=== PATIENT | male | born 1975 | race Caucasian/White ===

== ENCOUNTER 2021-08-24 16:59 | Outpatient (CLI) | payer BC ==
[2021-08-24 17:57] LABS: Hemoglobin 14.3 g/dL (13.5-17.5); Mean Corpuscular HGB CONC 34.7 g/dL (32.0-36.0); Mean Corpuscular Volume 89.4 fl (81.2-95.1); Mean Platelet Volume 10.8 fl (7.4-10.4); Platelet Count 210 10x3/uL (150-450); RBC Distribution Width 12.9 % (11.5-14.5); Red Blood Cell (RBC) Count 4.61 10x6/uL (4.32-5.72); White Blood Cell (WBC) Count 6.8 10x3/uL (3.5-10.5)
[2021-08-24 18:01] LABS: Anion Gap 15 mmol/L (10-20); BUN (Urea Nitrogen) 15 mg/dL (8.9-20.6); Calc. Creatinine Clearance 0 mL/min (70-130); Calcium 9.6 mg/dL (7.8-10.44); Carbon Dioxide 26 mmol/L (22-29); Chloride 103 mmol/L (98-107); Estimated GFR 103; Glucose 114 mg/dL (70-105); Potassium 4.3 mmol/L (3.5-5.1); Sodium 140 mmol/L (136-145)
[2021-08-24 18:09] LABS: INR-International Normal Ratio 1.2
[2021-08-24 18:12] LABS: Prothrombin Time 13.1 sec (9.5-12.1)
== END 2021-08-24 17:00 | disposition home or self-care (01) ==
LOC: LABBT 16:59
PROVIDERS: ATTEND Surgery
DX: Z01.812 Encounter for preprocedural laboratory examination (principal); M51.16 Intervertebral disc disorders with radiculopathy, lumbar region; Z20.822 Contact with and (suspected) exposure to COVID-19
CPT/HCPCS: 80048; 85027; 85610; 85730; 87811; 93005; 93010

== ENCOUNTER 2021-08-27 07:55 | Observation (INO) | payer BC ==
[2021-08-26 09:13] VITALS: BMI 31.1
[2021-08-27] MEDS ORDERED: Thrombin 5000 UNITS/5 ML VIAL ONE (09:58)
[2021-08-27] MEDS ORDERED: Midazolam HCl 2 mg/2 ml Vial ONE (10:07)
[2021-08-27] MEDS ORDERED: HYDROmorphone 2 MG/ML VIAL ONE (10:07)
[2021-08-27] MEDS ORDERED: fentaNYL Citrate/PF 100 MCG/2 ML SYRINGE ONE (10:07)
[2021-08-27] MEDS ORDERED: CEFAZOLIN 2 GM VIAL ONE (10:09)
[2021-08-27] MEDS ORDERED: Sodium Chloride 0.9% 100 ML ONE (10:09)
[2021-08-27] MEDS ORDERED: Phenylephrine 10 MG/ML VIAL ONE (10:23)
[2021-08-27] MEDS ORDERED: Succinylcholine 200 MG/10 ml SYRINGE FS ONE (10:23)
[2021-08-27] MEDS ORDERED: ePHEDrine 50 MG/ML VIAL ONE (10:23)
[2021-08-27] MEDS ORDERED: Dexamethasone 20 MG/5 ML VIAL ONE (10:23)
[2021-08-27] MEDS ORDERED: Lidocaine 1% PF 5 ML VIAL ONE (10:23)
[2021-08-27] MEDS ORDERED: PROPOFOL 200 MG/20 ML VIAL ONE (10:23)
[2021-08-27] MEDS ORDERED: Ketorolac Tromethamine 30 MG/ML VIAL ONE (10:23)
[2021-08-27] MEDS ORDERED: Ondansetron PF 4 MG/2 ML Vial ONE ×2 (10:23→14:29)
[2021-08-27] MEDS ORDERED: Glycopyrrolate 0.2 MG/ML 5 ML SYRINGE ONE (10:23)
[2021-08-27] MEDS ORDERED: Rocuronium Bromide 10 MG/ML (10ML VIAL) ONE (10:23)
[2021-08-27] MEDS ORDERED: SUGAMMADEX SODIUM 200 MG/2 ML VIAL ONE (11:41)
[2021-08-27] MEDS ORDERED: Promethazine HCl 25 MG/ML VIAL IM PRN (13:43)
[2021-08-27] MEDS ORDERED: Meperidine HCl/PF 25 MG/ML VIAL SLOW IVP PRN (13:43)
[2021-08-27] MEDS ORDERED: Ondansetron HCl/PF 4 MG/2 ML Vial IVP PRN (13:43)
[2021-08-27] MEDS ORDERED: Promethazine HCl 25 MG/ML VIAL IVPB PRN (13:43)
[2021-08-27] MEDS ORDERED: HYDROmorphone 2 MG/ML VIAL SLOW IVP PRN (13:43)
[2021-08-27] MEDS ORDERED: Ondansetron PF 4 MG/2 ML Vial IVP PRN (14:02)
[2021-08-27] MEDS ORDERED: Acetaminophen 325 MG TAB PO PRN (14:02)
[2021-08-27] MEDS ORDERED: Acetaminophen/Codeine 30-300mg Tablet PO PRN (14:02)
[2021-08-27] MEDS ORDERED: traMADol HCl 50 MG TAB PO PRN (14:02)
[2021-08-27] MEDS ORDERED: HYDROcodone/Acetaminophen 7.5/325 mg Tablet PO PRN (14:02)
[2021-08-27] MEDS ORDERED: Morphine 2 MG/ML VIAL SLOW IVP PRN (14:02)
[2021-08-27] MEDS ORDERED: Gabapentin 300 MG CAP PO PRN (14:04)
[2021-08-27] MEDS ORDERED: Fentanyl 100 MCG/2 ML VIAL ONE ×3 (14:25→15:35)
[2021-08-27] MEDS ORDERED: tiZANidine HCl 4 MG TAB ONE (14:46)
[2021-08-27] MEDS: tiZANidine HCl 4 MG TAB PO SCH ×2 (17:26→21:38)
[2021-08-27] MEDS: Sodium Chloride 0.9% 1,000 ML IV SCH (17:26)
[2021-08-27] MEDS ORDERED: ceFAZolin 2 GM/Dextrose 50 ML 2 GM in Premix Bag 1 BAG IVPB SCH (18:00)
[2021-08-27] MEDS: CEFAZOLIN 2 GM in Sodium Chloride 0.9% 100 ML IVPB SCH (20:51)
[2021-08-28] MEDS: CEFAZOLIN 2 GM in Sodium Chloride 0.9% 100 ML IVPB SCH (03:59)
[2021-08-28] MEDS: Sodium Chloride 0.9% 1,000 ML IV SCH (04:29)
[2021-08-28] MEDS: tiZANidine HCl 4 MG TAB PO SCH ×2 (06:01→13:09)
[2021-08-28] MEDS ORDERED: Dexamethasone 4 mg/ml Vial SLOW IVP SCH (11:30)
[2021-08-28 12:24] VITALS: BP 123/81; TEMP 97.8
== END 2021-08-28 13:45 | disposition home or self-care (01) ==
LOC: SDC 07:55 → SJJU 14:06
PROVIDERS: ADMIT Surgery; ATTEND Surgery
PROC: 0ST20ZZ Resection of Lumbar Vertebral Disc, Open Approach (ICD-10-PCS; principal; 2021-08-28)
DX: M51.16 Intervertebral disc disorders with radiculopathy, lumbar region (principal); M48.061 Spinal stenosis, lumbar region without neurogenic claudication; G43.909 Migraine, unspecified, not intractable, without status migrainosus; G89.4 Chronic pain syndrome; E66.9 Obesity, unspecified; Z68.31 Body mass index [BMI] 31.0-31.9, adult
CPT/HCPCS: 76000; 96365; 96366; 96375; G0378; J0690; J1100; J1170; J1885; J2250; J2370; J2405; J2704; J2710; J3010; J3370; J3490